=== PATIENT | male | born 1990 | race Caucasian/White ===

== ENCOUNTER 2025-09-07 13:48 | Emergency (ER) | payer BC, SELFPAY ==
--- OUTSIDE RECORDS SUMMARY | 2025-05-31 05:45 | XMS_ITS ---
Author Organization [facility] Primary Address [address] [place] [address] Care Team Providers Care Boot Lace Cutter Machine Name Role Phone Jcarlos George Primary Care Provider Pinky Harshad Davis Unavailable [phone] Minh Ordonez Unavailable Unavailable Reason For Referral Reason ENDOCRINOLOGY Diagnosis 1 Hyperthyroidism (E05 .90) Diagnosis 2 Single thyroid nodul e (E04.1) Referral Organization [facility] Primary Referring Provider First Name Harshad Referring Provider Last Name En Referring Provider Speciality Otolaryngo logy Referred Provider Specialty Endocrinolog y General Notes Chanell Monson 02:44:08 PM >Faxed referral to Dr. Landis ( ) Referral Priority Routine REASON FOR VISIT R thyroid nodule Medications Medication SIG (Take, Route, Frequency, Duration) Notes Start Date End Date Status Phenazopyridine HCl 100 MG Oral; Duration: 3 Day s ActiveTamsulosin HCl 0.4 MGOral; Duration: 14 DaysActiveHYDROcodone- Acetaminophen 5-325 MGTAKE 1 TABLET BY MOUTH EVERY 4 TO 6 HOURS NEEDED FOR PAIN Oral; Duration: 1 DaysActiveKetorolac Tromethamine 10 MGOral; Duration: 5 DaysActiveoxyBUTYnin Chloride 5 MGOral; Duration: 5 DaysActiveLoratadine 10 MG1 tablet Orally Once a dayActiveAcetaminophen Extra Strength 500 MGOral; Duration: 3 DaysActive Encounters Encounter Location Date Provider Diagnosis [facility] Primary [address] [place] [address] 05/31/2025 Harshad Gatica Assessments Encounter Date Diagnosis (ICD Code) Assessment Notes Treatment Notes Treatment Clinical Notes Section Notes 05/31/2025 Other Reviewed the patient's thyroid uptake scan. This demonstrated a hot nodule. We did go through with a ultrasound-guided fine-needle aspiration. We reviewed various aspects of managing a overactive nodule. I am placing a referral to endocrinology. I gave him some information on medical management. Iprovided a handout of symptoms that would correlate with either hyper or hypothyroidism. I discussed the role of surgery. He is going to consider his options. I set up a follow-up in 6 months. I planto call him about his biopsy results, next week. Plan Of Treatment Treatment Notes Assessment Notes Other Reviewed the patient 's thyroid uptake scan. This demonstrated a hot nodule. We did go through with a ultrasound-guided fine-needle aspiration. We reviewed various aspects of managing a overactive nodule. I am placing a referral to endocrinology. I gave him some information on medical management. I provided a handout of symptoms that would correlate with either hyper or hypothyroidism. I discussed the role of surgery. He is going to consider his options. I set up a follow-up in 6 months. I plan to call him about his biopsy results, next week. Referrals Referral Date Details 05/31/2025 05/31/2025, ENDOCRIN OLOGY Next Appt Details Provider Name:Harshad Soto Chely abdullahi, 12/04/2025 03:00:00 PM, [address] [facility], [place], [address], Progress Notes * Lee Ann SNY[birth year]OB:[birth year] (34 yo M)Acc No.[id number]:05/31/2025 Patient:?Per SNYDER :?Harshad ALEXEI GaticaOB:1990???Age:34 Y???Sex: MaleDate:05/31/2025Phone:Address:[address] [place], [place] [address]-[id number]: Jcarlos Hyman Do, DO Subjective: * Chief Complaints: * 1 . R thyroid nodule. * Medical History: * Medications: T aking Loratadine 10 MG Tablet 1 tablet Orally Once a day , Taking Acetaminophen Extra Strength 500 MG Tablet Oral , Taking HYDROcodone-Acetaminophen 5-325 MG Tablet TAKE 1 TABLET BY MOUTH EVERY 4 TO 6 HOURS NEEDED FOR PAIN Oral , Taking Ketorolac Tromethamine 10 MG Tablet Oral , Taking oxyBUTYnin Chloride 5 MG Tablet Oral , Taking Phenazopyridine HCl 100 MG Tablet Oral , Taking Tamsulosin HCl 0.4 MG Capsule Oral Objective: * Vitals: Assessment: Plan: * Treatment: Notes: Reviewed the patient's thyroid uptake scan. This demonstrated a hot nodule. We did go through with a ultrasound-guided fine-needle aspiration. We reviewed various aspects of managing a overactive nodule. I am placing a referral to endocrinology. I gave him some information on medical management. I provided a handout of symptoms that would correlate with either hyper or hypothyroidism. I discussed the role of surgery. He is going to consider his options. I set up a follow-up in 6 months. I plan to call him about his biopsy results, next week.? Referral To:Endocrinology ?Reason:ENDOCRINOLOGY * Billing Information: * Visit Code: * Procedure Codes: * Electronic signature of Harshad Gatica MD on 09/07/2025 at 02:42 PM ESTSign off status: Pending * Provider: Benoit Gatica MD Date: 0 05/31/2025 Generated for Printing/Faxing/eTransmitting on:?09/07/2025 02:42 PM EST Consultation Request Notes Referral Date Referring Provider Referred Provider Not es 05/31/2025 Harshad Gatica , ENDOCRINOLOGY
[2025-09-07 14:01] VITALS: BP 156/61; PULSE 86; TEMP 36.7; O2SAT 97; BMI 22.4
--- NOTE | 2025-09-07 14:34 | CT_ITS ---
The [address] [address] Patient Name: AMERICO SNYDER MRN: [id number] date: 1990 Sex: M Assigned Patient Location: ED.MAIN Current Patient Location: ED.MAIN Accession/Order Number: [id number] Exam Date: 09/07/2025 14:40 Report Date: 09/07/2025 15:11 At the request of: EMILY PEGUERO Procedure: CT abdomen pelvis w con CT ABDOMEN AND PELVIS WITH INTRAVENOUS CONTRAST: CLINICAL HISTORY: RLQ ttp COMPARISON: None TECHNIQUE: Spiral images were obtained through the abdomen and pelvis following the administration of intravenous contrast. This CT exam was performed using one or more following dose reduction techniques: Automated exposure control, adjustment of the mA and/or kV according to patient size, or use of iterative reconstruction technique. FINDINGS: Lung Bases: [No focal] opacity Organs:Subcentimeter hypodensities involving the right kidney noted too small for accurate characterization likely cysts. No hydronephrosis. Otherwise, Liver, spleen, adrenals, kidneys, and pancreas are unremarkable.[ GI: Mild retained stool throughout the colon. No bowel obstruction. Dilated appendix with wall thickening and surrounding frontal changes suggestive of acute uncomplicated appendicitis. Reactive Periappendiceal lymph nodes identified.[ Pelvis:[4 mm calculus suspected left ureteral vesicle junction. Minimal left distal hydroureter. Otherwise prostate unremarkable.] Peritoneum/Retroperitoneum:No free air or free fluid. Aorta normal caliber. Abd wall/Bones:Mild levocurvature lower lumbar spine. Minor dextrocurvature thoracolumbar junction.[ CT/CT abdomen pelvis w con IMPRESSION: Findings of acute uncomplicated appendicitis. Incidental left ureterovesical junction calculus causing minimal left-sided hydroureter is measures 4 mm in greatest dimension. Impression dictated by: Pieter Cruz M.D. 09/07/2025 3:11 PM Dictation Location: [place] [address] Electronically authenticated by: [id number] Y Date: 09/07/2025 15:11
--- NOTE | 2025-09-07 14:38 | ED_ITS ---
HPI HPI - General Adult General Chief complaint: Abdominal Pain Stated complaint: R SIDED LOWER ABDOMINAL PAIN Time Seen by Provider: 09/07/25 14:24 Source: patient Mode of arrival: walk-in Limitations: no limitations History of Present Illness HPI narrative: Patient is a 34-year-old male that presents to the emergency department with complaints of right lower quadrant abdominal pain that started last night. He states that he had a bowel movement 2 hours prior to arrival here. He denies any abdominal surgeries other than kidney stone removal with stent. He states that he has had a kidney stone but this area he has pain feels different. He states that he felt feverish last night, did not take his temperature. He also notes that he started to have dysuria and penile pain intermittently even when not urinating. He denies any testicular swelling, erythema, or trauma. He denies any nausea or vomiting. Related Data Home Medications ?Medication ?Instructions ?Recorded ?Confirmed loratadine 10 mg tablet (Allergy 10 mg PO DAILY 09/07/25 Relief (loratadine)) Allergies Allergy/AdvReac Type Severity Reaction Status Date / Time No Known Drug Allergies Allergy Verified 09/07/25 14:04 Opioid HPI Opioid Management Most Recent Opioid Data: Last Pain Scale 6 Today, 14:01 Review of Systems ROS Status of ROS 10 or more systems reviewed and unremark able except as noted in history and below PFSH PFSH Social History Little interest or pleasure in doing things: not at all Feeling down, depressed, or hopeless: not at all Exam Narrative Exam Narrative: General: No distress, age-appropriate Skin: Warm, dry, no pallor. No rash. Head: Normocephalic, atraumatic. Neck: Supple, non-tender. Eye: Pupils are equal, round and EOMI. No scleral icterus. Ears, Nose, Mouth, and Throat: No nasal mucosal hypertrophy. Oral mucosa is moist, no posterior oropharynx erythema, uvula is mid-line Cardiovascular: Regular Rate and Rhythm without murmur, gallop or rub. Respiratory: No accessory muscle use or respiratory distress. Lungs are clear to auscultation, no wheezing, rales or rhonchi Chest Wall: no tenderness Musculoskeletal: Full ROM of all extremities, no calf or popliteal tenderness GI: Abdomen is soft, non-distended, RLQ tenderness to palpation. No masses appreciated. No rebound, guarding, or rigidity noted. Neurological: A&O x4. No cranial nerve dysfunction observed. No truncal ataxia. Moves all extremities. Sensation intact. Psychiatric: Cooperative and interactive. Normal mood and affect. Constitutional Vital Signs, click to edit/add: Last Vital Signs Temp 98.0 F 09/07/25 14:01 Pulse 86 09/07/25 14:01 Resp 16 09/07/25 14:01 BP 156/61 H 09/07/25 14:01 Pulse Ox 97 09/07/25 14:01 O2 Del Method Room Air 09/07/25 14:01 Documenting provider has reviewed patient's vital signs: yes Course Vital Signs Vital signs: Vital Signs Temperature 98.0 F 09/07/25 14:01 Pulse Rate 86 09/07/25 14:01 Respiratory Rate 16 09/07/25 14:01 Blood Pressure 156/61 H 09/07/25 14:01 Pulse Oximetry 97 09/07/25 14:01 Oxygen Delivery Method Room Air 09/07/25 14:01 Temperature 98.0 F 09/07/25 14:01 Pulse Rate 86 09/07/25 14:01 Respiratory Rate 16 09/07/25 14:01 Blood Pressure 156/61 H 09/07/25 14:01 Pulse Oximetry 97 09/07/25 14:01 Oxygen Delivery Method Room Air 09/07/25 14:01 Medical Decision Making [facility] Narrative Medical decision making narrative: 34-year-old male presents with RLQ abdominal pain, subjective fever, dysuria, and penile discomfort. Exam notable for focal RLQ tenderness without peritonitis. Differential included appendicitis, ureterolithiasis, UTI, prostatitis, and testicular pathology. Labs show normal WBC (7.7), afebrile, and UA without evidence of infection. CT abdomen/pelvis demonstrates acute uncom plicated appendicitis as well as an incidental 4 mm left UVJ calculus with minimal hydroureter. Given CT findings and clinical presentation, appendicitis is the primary diagnosis; the UVJ stone is non-obstructing and non-infected. UA without signs of infection. Patient placed NPO. Pain controlled with analgesics. No indication for emergent urologic intervention at this time. I spoke with general surgeon, Dr. Corrales at [facility] and he will accept patient in transfer. If transfer is via EMS, he may have to wait or Dr Corrales recommended that if patient's family was reliable that they could transport via private vehicle as he was stable. Patient and his at bedside decided to transport via private vehicle. They are from [place] and live 5 hours away and preferred to have surgery as soon as possible. I called back and spoke with Dr. Corrales and he will accept patient as a direct admit. He does not wish for patient to get IV antibiotics here as it will delay transport and states he will give them to patient on arrival there. Patient is to present to ER registration. I updated patient with all this information and patient was transferred to [facility] via private vehicle in stable condition. Differential Diagnosis Differential Diagnosis: Appendicitis, UTI, ureterolithiasis, prostatitis, epididymitis Lab Data Lab results reviewed: Yes I reviewed the patient's lab results Labs: Lab Results 09/07/25 09/07/25 Range/Units 14:15 14:30 WBC 7.7 (4.0-11.0) 10^3/uL RBC 4.98 (4.70-6.10) 10^6/uL Hgb 13.8 L (14.0-18.0) g/dL Hct 40.8 L (42.0-54.0) % MCV 81.9 (80.0-94.0) fL MCH 27.7 (25.9-34.0) pg MCHC 33.8 (29.9-35.2) g/dL RDW 12.8 (11.0-15.0) % Plt Count 228 (150-450) 10^3/uL MPV 9.2 L (9.5-13.5) fL Neut % (Auto) 56.9 (43.0-75.0) % Lymph % (Auto) 29.9 (20.5-60.0) % [place] % (Auto) 10.1 (1.7-12.0) % Eos % (Auto) 2.4 (0.9-7.0) % Baso % (Auto) 0.4 (0.2-2.0) % Neut # (Auto) 4.4 (1.4-6.5) 10^3/uL Lymph # (Auto) 2.3 (1.2-3.8) 10^3/uL [place] # (Auto) 0.8 (0.3-0.8) 10^3/uL Eos # (Auto) 0.2 (0.0-0.7) 10^3/uL Baso # (Auto) 0.0 (0.0-0.1) 10^3/uL Abs Immat Gran (auto) 0.02 (0.00-0.03) 10^3/uL Imm/Tot Granulo (auto) 0.3 (0.0-0.5) % Sodium 136 (136-145) mmol/L Potassium 3.6 (3.5-5.1) mmol/L Chloride 101 (98-107) mmol/L Carbon Dioxide 29.3 (21.0-32.0) mmol/L Anion Gap 9.3 BUN 8.0 (7.0-18.0) mg/dL Creatinine 0.56 L (0.70-1.30) mg/dL Est GFR ( Amer) >60 (>=60 mL/min/1.73m^2) Est GFR (Non-Af Amer) >60 (>=60 mL/min/1.73m^2) BUN/Creatinine Ratio 14.3 Glucose 96 (74-106) mg/dL Calcium 9.0 (8.5-10.1) mg/dL Total Bilirubin 0.3 (0.2-1.0) mg/dL AST 20 (15-37) U/L ALT 49 (16-63) U/L Alkaline Phosphatase 80 (46-116) U/L Total Protein 7.1 (6.4-8.2) g/dL Albumin 3.5 (3.4-5.0) g/dL Globulin 3.6 g/dL Albumin/Globulin Ratio 1.0 Urine Color Lt. yellow (YELLOW) Urine Clarity Clear (CLEAR) Urine pH 6.0 (5.0-9.0) Ur Specific [place] 1.015 (1.005-1.025) Urine Protein Negative (NEG/TRACE) mg/dL Urine Glucose (UA) Negative (NEGATIVE) mg/dL Urine Ketones Negative (NEGATIVE) mg/dL Urine Occult Blood Trace-i (NEGATIVE) Urine Nitrite Negative (NEGATIVE) Urine Bilirubin Negative (NEGATIVE) Urine Urobilinogen 0.2 (0.2-1.0) EU/dL Ur Leukocyte Esterase Negative (NEGATIVE) Urine RBC 0-2 (0-2) #/HPF Urine WBC 0-2 A (NONE SEEN) #/HPF Ur Squamous Epith Cells Few A (NONE/RARE) #/LPF Urine Crystals None seen (None Seen) #/HPF Urine Bacteria Trace A (NONE SEEN) #/HPF Urine Casts None seen (NONE SEEN) #/LPF Urine Mucus Trace A (NONE SEEN) Ur Culture Indicated? No Imaging Data CT scan - abdomen: Attestation: I have reviewed the pertinent imaging results. Radiologist's impression: ITS Impressions Abdomen/Pelvis CT 09/07/25 14:34 IMPRESSION: Findings of acute uncomplicated appendicitis. Incidental left ureterovesical junction calculus causing minimal left-sided hydroureter is measures 4 mm in greatest dimension. Impression dictated by: Pieter Cruz M.D. 09/07/2025 3:11 PM Dictation Location: [facility] Device Electronically authenticated by: [id number] Y Date: 09/07/2025 15:11 Discharge Plan Discharge Chief Complaint: Abdominal Pain Clinical Impression: Acute appendicitis Patient Disposition: [facility] Time of Disposition Decision: 16:01 Discharge Location: [facility] Condition: Good Mode of Transportation: Private Vehicle
--- OUTSIDE RECORDS SUMMARY | 2025-09-07 14:42 | XMS_ITS | Clinical Summary ---
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 Social History Tobacco UseTypesPacks/DayYears UsedDateSmoking Tobacco: NeverSmokeless Tobacco: Never Tobacco Cessation:Counseling Given: Yes Alcohol UseStandard Drinks/WeekCommentsYes0 (1 standard drink = 0.6 oz pure alcohol)AUDIT-CAnswerDate RecordedQ1: How often do you have a drink containing alcohol?Monthly or less09/18/2019Average Number of DrinksNot on file09/18/2019 Frequency of Binge DrinkingNot on file09/18/2019Area Deprivation IndexAnswerDate RecordedNational Score (1-100), lower number is lower riskNot on file09/17/2020 State Score (1-10), lower number is lower riskNot on file09/17/2020Data from: https://www.neighborhoodatlas.medicine.[facility].edu/. Last address used for calculationNot on file09/17/2020Sex and Gender InformationValueDate RecordedSex Assigned at PigswPxzp74/22/2020 9:36 PM EDTLegal OsrAalj09/19/2013 4:22 PM EST Gender ArmlvdxxWpue34/22/2020 9:36 PM EDTSexual IqhloqbunfjNokvfnjq27/ 9:36 PM EDT Last Filed Vital Signs Vital SignReadingTime TakenCommentsBlood Amcuhrjs246/75010/23/2020 12:54 PM EST Csvdm974910/23/2020 12:54 PM KUMDksaomzhtck91.5 ??C (97.7 ??F)10/23/2020 12:54 PM ESTRespiratory Rate--Oxygen Jqfkzeknfr19%10/23/2020 12:54 PM ESTInhaled Oxygen Concentration--Ttymlp72.4 kg (186 lb)10/23/2020 12:54 PM VNGMiewed176.4 cm (6' 1 )10/23/2020 12:54 PM ESTBody Mass Index24.54010/23/2020 12:54 PM EST Plan of Treatment Health MaintenanceDue DateLast DoneCommentsAnxiety Omykrutha19/21/2010Depression Dfgjpehqt21/21/2010HIV Invuswtez39/21/2010Hepatitis C Zmchnbqrc97/21/2010 DTaP,Tdap,Td Vaccine (1 - Tdap)12/29/2010Hepatitis B Vaccine (1 of 3 - 19+ 3- dose series)12/29/2010HPV Vaccine (1 - 3-dose SCDM series)12/29/2018Covid-19 Vaccine (1 - 2024- season)2025Influenza Vaccine (#1)2025 08/17/2019, 07/12/2018, 06/03/2016, Additional history exists Insurance Care Teams Team MemberRelationshipSpecialtyStart DateEnd Date Lupis Valles PA-C [address] [place], [place] [id number] PCP - GeneralInternal Kqqjoynt07/9/19
--- OUTSIDE RECORDS SUMMARY | 2025-09-07 14:42 | XMS_ITS | Patient Health Record ---
Author Organization [facility] Primary Address [address] [place] [address] Care Team Providers Care Paint Brush Maker Name Role Phone Boogie Jcarlos RUBI Primary Care Provider Pinky jailaIbrahima Obrien Unavailable [phone] Minh Ordonez Unavailable Unavailable Allergies No Known Allergies Results Component Value Reference Range Notes NON-GYNECOLOGIC CYTOLOGY Reviewed date:06/04/2025 01:32:48 PM Interpretation: Performing Lab: Notes/Report: Right thyroid nodule Original Ordering Provider: IBRAHIMA GATICA [facility], Laboratory, [address] [place] [address] Final Diagnosis Right thyroid, fine-needle aspir ation and cell block: Benign, category 2, consistent with benign follicular nodule. CPT 83379, [address] Clinical InformationRight thyroid noduleGross DescriptionA. Thyroid, Right, : 1 fx/1 ad slides, cytolyt. Hazy, red fl 3 slides, CB Labeled Right thyroid nodule E04.1 DisclaimerThe technical components of this case were performed [facility] [address] [place], [place] [address]JgltOsg Note.NoteSee NoteNM THYROID SGL/MULT UPTAKE MEASUREMENT Reviewed date:05/29/2025 12:54:40 PM Interpretation: Performing Lab: Notes/Report: See Note [facility] NM THYROID SGL/MULT UPTAKE MEASUREMENT Reason For Referral Reason ENDOCRINOLOGY Diagnosis 1 Hyperthyroidism (E05 .90) Diagnosis 2 Single thyroid nodul e (E04.1) Referral Organization [facility] Primary Referring Provider First Name Ibrahima Referring Provider Last Name En Referring Provider Speciality Otolaryngo logy Referred Provider Specialty Endocrinolog y General Notes Chanell Monson 02:44:08 PM >Faxed referral to Dr. Landis ( ) Referral Priority Routine Medications Medication SIG (Take, Route, Frequency, Duration) [...] Extra Strength 500 MGOral; Duration: 3 DaysActive Social History Tobacco Use: Social History Observation Description Date Details (start date - stop date) Never Smoker NA - NA Tobacco Control (Standard) Question Answer Notes Tobacco use: Nonsmoker AUDIT-C (Standard) Question Answer Notes Did you have a drink containing alcohol in the p ast year? Yes How often did you have six or more drinks on one occasion in the past year?Never (0 point)How many drinks did you have on a typical day when you were drinking in the past year?1 or 2 drinks (0 point)How often did you have a drink containing alcohol in the past year?Monthly or less (1 point) Problems Problem Type SNOMED Code ICD Code Onset Dates Problem Status W/U Status Risk Notes Problem Hyperthyroidism (45432064) Hyperthyroidis m (E05.90) ActiveconfirmedProblemNon-toxic single thyroid nodule (482370260)Single thyroid nodule (E04.1)Activeconfirmed Vital Signs Height-cm 185.42 cm 05/07/2025 Weight-kg80.74 kg05/07/20256656Wtylsl57 in05/07/20256965Tokpws781 lbs05/07/2025BMI23.48 kg/m205/07/2025 Encounters Encounter Location Date Provider Diagnosis [facility] [address] [place] [address] 05/31/2025 Ibrahima Gatica [facility] [id number] [place], [place] [id number]/Matthew BowenHyperthyroidism E05.90 and Single thyroid nodule E04.1[facility] [address] [place] [address]/09/2025Matthew BowenHyperthyroidism E05.90 and Single thyroid nodule E04.1 Assessments Encounter Date Diagnosis (ICD Code) Assessment Notes Treatment Notes Treatment Clinical Notes Section Notes 05/07/2025 Hyperthyroidism (ICD-10 - E05.90 ) 05/07/2025Single thyroid nodule (ICD-10 - E04.1)05/22/2025Hyperthyroidism (ICD- 10 - E05.90)05/22/2025Single thyroid nodule (ICD-10 - E04.1)05/31/2025Other Reviewed the patient's thyroid uptake scan. This demonstrated a hot nodule. We did go through with a ultrasound-guided fine-needle aspiration. We reviewed various aspects of managing a overactive nodule. I am placing a referral to endocrinology. I gave him some information on medical management. I provided a handout of symptoms that would correlate with either hyper or hypothyroidism. I discussedthe role of surgery. He is going to consider his options. I set up a follow-up in 6 months. I plan to call him about his biopsy results, next week. 05/07/2025Other Patient has a newly noticed right thyroid nodule. He has a low TSH. Reviewing the ultrasound characteristics, the nodule does meet criteria for ultrasound-guided fine-needle aspiration. We are scheduling this after a thyroid uptake scan. Plan Of Treatment Pending Test Test Name Order Date NM THYROID UPTAKE MEASUREMENT 05/07/2025 Thyroid Uptake and Scan 05/22/2025 Next Appt Details Provider Name:Ibrahima abdullahi, 12/04/2025 03:00:00 PM, [address], [place], [address], Insurance Providers Payer Name Payer Address Payer Phone Subscriber Number Group Number Insured Name Patient Relationship to Insured Coverage Start Date Coverage End Date [facility] [address] [place] [address] [id number] Per Abad Self - patient is the insured Medical (General) History Medical History History ICD Code Asthma Surgical History Surgery Date(Month/Year) RIGHT URETEROSCOPY WITH LASE R LITHOTRIPSY, STENT PLACEMENT, URETHERAL DILATION
--- OUTSIDE RECORDS SUMMARY | 2025-09-07 14:42 | XMS_ITS | Clinical Summary ---
Author Organization [facility] Address [address] [place] [address] Care Team Providers Care Kineseologist Name Role Phone Phys, Self-Refer Or No Pcp/Referring Primary Car e Provider Unavailable Angus Byrne DO Unavailable Unavailable Allergies No known active allergies Medications MedicationSigDispense QuantityRefillsLast FilledStart DateEnd DateStatus loratadine 10 mg tablet Take 10 mg by mouth in the morning.Active fluticasone (FLONASE ALLERGY RELIEF) 50 mcg/actuation nasal spray in the morning.Active acetaminophen 500 mg tablet 05/04/2025tive oxyBUTYnin 5 mg tablet two times daily.Discontinued(Patient reported no longer prescribed) tamsulosin 0.4 mg 24 hr capsule Take 1 capsule (0.4 mg) by mouth two times daily. 60 capsule Discontinued(Patient reported no longer prescribed) phenazopyridine (PYRIDIUM) 100 mg tablet Take 1 tablet (100 mg) by mouth two times daily as needed for urination pain. 60 tablet Discontinued(Patient reported no longer prescribed) ketorolac (TORADOL) 10 mg tablet Discontinued(Patient reported no longer prescribed) Encounters DateTypeDepartmentCare SusbVybjnbjhgtc67/10/2025 4:20 PM ESTOffice Visit [facility] [address] [place] [id number] Okerstrom, Ama Stephanie, PA-C Kidney stones (Primary Dx)from Last 3 Months Family History Medical HistoryRelationNameCommentsKidney stonesFatherScott WeingartRelationName StatusCommentsFatherScott WeingartAlive Social History Tobacco UseTypesPacks/DayYears UsedDateSmoking Tobacco: NeverSmokeless Tobacco: Never Tobacco Cessation:Counseling Given: Not Answered Alcohol UseStandard Drinks/WeekCommentsYes1 (1 standard drink = 0.6 oz pure alcohol)[facility] UtilitiesAnswerDate RecordedIn the past [address] [employer], gas, oil, or water Ipp[employer] threatened to shut off services in your home?No 05/02/2025Hunger Vital SignAnswerDate RecordedWithin the past 12 months, you worried that your food would run out before you got the money to buymore.Never true05/02/2025Within the past 12 months, the food you bought just didn't last and you didn't have money to get more.Never true05/02/2025HC - Inadequate HousingAnswerDate RecordedWhat is your living situation today?I have a steady place to live05/02/2025Think about the place you live. Do you have problems with any of the following?None of the above05/02/2025NCSS - Interpersonal Safety AnswerDate RecordedDo you feel physically and emotionally safe where you currently live?Yes05/02/2025Within the past 12 months, have you been hit, slapped, kicked or otherwise physically hurt by someone?No05/02/2025Within the past 12 months, have you been humiliated or emotionally abused in other ways by your partner or ex-partner?No05/02/2025HC - TransportationAnswerDate RecordedIn the past 12 months, has lack of reliable transportation kept you from medical appointments, meetings, work or from getting things needed for daily living?No 05/02/2025HC - Financial StrainAnswerDate RecordedHow hard is it for you to pay for the very basics like food, housing, medical care, and heating? Would you say it is:Not hard at all05/02/2025Job TrainingAnswerDate RecordedDo you have a hard time finding work or another steady source of income?No05/02/2025Do you need help finding a local career center and/or job training?No05/02/2025hild or Elder CareAnswerDate RecordedIn the last 4 weeks, did getting day care center director, elder care, or care for another person make it difficult to work, study, or get to medical visits? 2No05/02/2025Virtual CareAnswerDate RecordedHow would you describe your comfort level with using technology (smart phones, mobile apps, patientportals) to access your health care?Rather /23/2025Do you have internet access in your home that would allow you to participate in a realtime video visit with your provider?Yes05/02/2025Do you have access to a device that would allow you to participate in virtual care with your provider, such as a laptop, computer, smart phone or tablet?Yes05/02/2025Social Isolation AnswerDate RecordedWithin the last 12 months, how often do you feel isolated from others?Jmmggk1505/02/2025Sex and Gender InformationValueDate RecordedSex Assigned at BirthNot on fileLegal QldQjix5104/30/2025 9:32 AM EDTGender Identity Not on fileSexual OrientationNot on file Last Filed Vital Signs Vital SignReadingTime TakenCommentsBlood Hwnzicrc413/5808 1:51 PM EDT Post stent gipalxbNkujp4357/21/2025 1:51 PM RLZArbaxkcgcho60.9 ??C (98.4 ??F) 05/31/2025 1:18 PM EDTRespiratory Mpuz337005/31/2025 1:18 PM EDTOxygen Saturation- -Inhaled Oxygen Concentration--Mchpft05.1 kg (170 lb)05/31/2025 1:18 PM EDT Kbjdwh201.4 cm (6' 1 )05/31/2025 1:18 PM EDTBody Mass Index22.4308 1:18 PM EDT Plan of Treatment Health MaintenanceDue DateLast DoneCommentsHepatitis C Tpekmnvmi62/21/1992 DTaP,Tdap,and Td Vaccines (1 - Tdap)12/29/2010Hepatitis B Vaccine ages 19 years and older (1 of 3 - 19+ 3-dose series)12/29/2010COVID-19 Vaccine ( season)512/, 08/12/2021, 01/24/2021, Additional history exists Influenza Vaccine (#1)511/01/2024, 08/14/2024, 10/07/2023, Additional history existsRespiratory Syncytial Virus (RSV) or ages 60 years and older (1 - 1-dose 75+ series)12/29/2066Pneumococcal CombinedAged OutNo longer eligible based on patient's age to complete this topicRespiratory Syncytial Virus (RSV) ages 0 thru 19 monthsAged OutNo longer eligible based on patient's age to complete this topic Procedures Procedure NamePriorityDate/TimeAssociated DiagnosisCommentsURINALYSIS, POINT OF CARE UITYLMKnhuwhz00/10/2025 4:32 PM EST from Last 3 Months Results * Urinalysis, Point of Care Result (08/20/2025 4:32 PM EST)ComponentValueRef RangeTest MethodAnalysis TimePerformed AtPathologist SignatureGlucose, Urine NegativeNegativeMICHIGAN MEDICINEBilirubin, UrineNegativeNegativeMICHIGAN MEDICINEKetones, UrineNegativeNegativeMICHIGAN MEDICINESpecific [place], Urine >=1.030<1.035[facility] MEDICINEBlood, UrineNegativeNegativeMICHIGAN MEDICINEpH, Urine6.05.0 - 8.0[facility] MEDICINEProtein, UrineNegative<30 mg/dLMICHIGAN MEDICINEUrobilinogen, Urine0.2 E.U./dL<2 E.U./dLMICHIGAN MEDICINENitrite, UrineNegativeNegativeMICHIGAN MEDICINELeukocyte EsteraseNegativeNegative [place] MEDICINEComment:Performing Lab: [facility], [address], [place] [address]Vdehmmwl (Source)Anatomical Location / LateralityCollection Method / VolumeCollection TimeReceived Time08/20/2025 4:32 PM EST08/20/2025 4:32 PM EST Narrative Authorizing ProviderResult TypeResult StatusNot On File PhysPOINT OF CARE TESTS Final ResultPerforming OrganizationAddressCity/State/ZIP CodePhone Number [facility] [address] [place] [address], [place] [phone] [facility] [address] [place] [address], [place] [phone] from Last 3 Months Insurance Care Teams Team MemberRelationshipSpecialtyStart DateEnd Date Phys, Self-Refer Or No Pcp/Referring PCP - General04/30/25 Angus Byrne DO [address] [facility] [place] [address] Urology05/22/25
--- OUTSIDE RECORDS SUMMARY | 2025-09-07 14:42 | XMS_ITS | Patient Health Record ---
Author Organization [facility] Address [address] [place] [address] Care Team Providers Care Shutdown Planner Name Role Phone Harshad Meraz Primary Care Provider Unavaila ble Allergies No Known Allergies Reason For Referral No Information Medications Medication SIG (Take, Route, Frequency, Duration) Notes Start Date End Date Status Claritin 10 MG 1 capsule Orally Once a day ActiveMucinex DM 30-600 MG1 tablet as needed Orally every 12 hrsNot-Taking Flonase Allergy Relief 50 MCG/ACT1 spray in each nostril Nasally Once a day Not-Taking Immunizations Vaccine Route Administration Date Status Comme nts qqFluvirin Prefilled Flu Vac cine, 4 yo and > (Non- Medicare) Unknown 08/14/2024 Administered Flu Vaccine (Given in Past) HaqglkvlyjwTjddjdo10/28/2902Hxfxmizrpqqys4154 Fluzone Quad PFS (0.5mL Admin) 6 months & locmiMvxqmfa24/11/2023 Contraindications Social History Tobacco Use: Social History Observation Description Date Details (start date - stop date) Never Smoker NA - NA Tobacco Control (Standard) Question Answer Notes Tobacco use: Nonsmoker Problems Problem Type SNOMED Code ICD Code Onset Dates Problem Status W/U Status Risk Notes Problem Seasonal allergy (778704640) Seasonal all ergies (J30.2) ActiveconfirmedProblemChronic sinusitis (35482144)Frequent sinus infections (J32.9)Activeconfirmed Plan Of Treatment No Information Insurance Providers Payer Name Payer Address Payer Phone Subscriber Number Group Number Insured Name Patient Relationship to Insured Coverage Start Date Coverage End Date [employer] [place] [address] [place] [address] [id number] Weingart, Per Self - patient is the insured Medical (General) History Medical History History ICD Code Seasonal allergies J30.2 Frequent sinus infections J32.9
--- OUTSIDE RECORDS SUMMARY | 2025-09-07 14:42 | XMS_ITS | Clinical Summary ---
Author Organization [facility] Address [address] [place] [address] Care Team Providers Care Director Sterile Processing Name Role Phone Mariya Harshad Julianna RUBI Primary Care Provider [phone] Allergies No known active allergies Medications MedicationSigDispense QuantityRefillsLast FilledStart DateEnd DateStatus loratadine (Claritin) 10 MG/10ML syrup 1 (one) time each day at the same time.Active Active Problems ProblemNoted DateDiagnosed DateAllergic weedaadk07/31/2023 Immunizations ImmunizationAdministration DatesNext DueInfluenza, injectable, MDCK, preservative free, urqkdlhtpoud93/19/2022Influenza, injectable, quadrivalent, preservative free07/30/2021,07/09/2020,08/17/2019,07/12/2018,06/03/2016 Influenza, seasonal, voajxerpnl60/20/2014,07/31/2013Influenza, seasonal, injectable, preservative free07/05/2015Novel xscarfjqw-Q9M5-93, preservative-free08/17/20098873JJZR-HFW-7 (COVID-19) vaccine, mRNA, spike protein, LNP, bivalent, preservative free, 30 mcg/0.3 mLdose, mikayla-sucrose formulation 09/28/2022 Family History Medical HistoryRelationNameCommentsNo Known ProblemsFatherNo Known Problems MotherNo Known NbkyxmbqTivgzj2MkdhopybLwztQovtjjOgrpguktLbsejqNwdheQazsueDjnki Xdnjfx1Fuepc Social History Tobacco UseTypesPacks/DayYears UsedDateSmoking Tobacco: NeverSmokeless Tobacco: Never Tobacco Cessation:Counseling Given: Not Answered Alcohol UseStandard Drinks/WeekCommentsYes1 (1 standard drink = 0.6 oz pure alcohol)3-4 drinks, 2-3 times a week.Humiliation, Afraid, Rape, and Kick questionnaireAnswerDate RecordedWithin the last year, have you been afraid of your partner or ex-partner?No06/10/2023Within the last year, have you been humiliated or emotionally abused in other ways by your partner or ex-partner?No 06/10/2023Within the last year, have you been kicked, hit, slapped, or otherwise physically hurt by your partner or ex-partner?No06/10/2023Within the last year, have you been raped or forced to have any kind of sexual activity by your part ner or ex-partner?No06/10/2023Social Connection and Isolation PanelAnswerDate RecordedIn a typical week, how many times do you talk on the phone with family, friends, or neighbors?Once a week06/10/2023How often do you get together with friends or relatives?Once a week06/10/2023How often do you attend alevism or jewish services?More than 4 times per year06/10/2023o you belong to any clubs or organizations such as alevism groups, unions, fraternal or athletic teja ups, or school groups?Yes06/10/2023How often do you attend meetings of the clubs or organizations you belong to?1 to 4 times per year06/10/2023re you , , , , never , or living with a partner? 06/10/2023UDIT-CAnswerDate RecordedQ1: How often do you have a drink containing alcohol?2-4 times a month06/10/2023Q2: How many drinks containing alcohol do you have on a typical day when you are drinking?1 or Q3: How often do you have six or more drinks on one occasion?Never06/10/2023Overall Financial Resource Strain (CARDIA)AnswerDate RecordedHow hard is it for you to pay for the very basics like food, housing, medical care, and heating?Not very hard 06/10/2023HQ-2AnswerDate RecordedPatient Health Questionnaire-2 Score0 06/11/2023Fin[facility] [place] of Occupational Health - Occupational Stress QuestionnaireAnswerDate RecordedDo you feel stress - tense, restless, nervous, or anxious, or unable to sleep at night because yourmind is troubled all the time - these days?To some bdftxi7606/10/2023Exercise Vital SignAnswerDate Recorded On average, how many days per week do you engage in moderate to strenuous exercise (like a brisk walk)?3 days06/10/2023On average, how many minutes do you engage in exercise at this level?30 min06/10/2023Hunger Vital SignAnswerDate RecordedWithin the past 12 months, you worried that your food would run out before you got the money to buymore.Never true06/10/2023Within the past 12 months, the food you bought just didn't last and you didn't have money to get more.Never true06/10/2023RAPARE - TransportationAnswerDate RecordedIn the past 12 months, has lack of transportation kept you from medical appointments or from getting medications?No06/10/2023In the past 12 months, has lack of transportation kept you from meetings, work, or from getting things needed for daily living?No06/10/2023Housing Stability Vital SignAnswerDate RecordedIn the last 12 months, was there a time when you were not able to pay the mortgage or rent on time?No06/10/2023In the last 12 months, how many places have you lived?1 06/10/2023In the last 12 months, was there a time when you did not have a steady place to sleep or slept in [place] (including now)?No06/10/2023Sex and Gender InformationValueDate RecordedSex Assigned at LarvdSeqo48/31/2023 7:21 PM EDT Legal RfiDymz7512/23/2022 8:26 PM EDTGender HifjjhpzSult01/31/2023 7:21 PM EDT Sexual OrientationNot on file Last Filed Vital Signs Vital SignReadingTime TakenCommentsBlood Ukalzqnz979/7809 9:15 AM EDT Gwvbf29502/01/2023 9:15 AM MEBIesbywsakgd51.6 ??C (97.9 ??F)06/11/2023 9:15 AM EDTRespiratory Rate--Oxygen Ushmbuyfae99%06/11/2023 9:15 AM EDTInhaled Oxygen Concentration--Twyfoi15.7 kg (189 lb)06/11/2023 9:15 AM TKDJhajue657 cm (6' 2 ) 06/11/2023 9:15 AM EDTBody Mass Index24.27006/11/2023 9:15 AM EDT Plan of Treatment Health MaintenanceDue DateLast DoneCommentsPneumococcal Vaccine: Pediatrics (0 to 5 Years) and At-Risk Patients (6 to 64 Years) (1 of 2 - PCV)12/29/2010COVID- 19 Vaccine ( season)/11/2020, 01/24/2021, 12/27/2020 Influenza Vaccine (#1)/01/2024, 07/14/2023, 07/29/2022, Additional [place] [address] Care Teams Team MemberRelationshipSpecialtyStart DateEnd Date Harshad Meraz DO [address] [place] [address] PCP - GeneralFamily Medicine02/16/23
[2025-09-07 14:43] LABS: Hematocrit 40.8 % (42.0-54.0); Hemoglobin 13.8 g/dL (14.0-18.0); Immature Granulocytes Abs Auto 0.02 10^3/uL (0.00-0.03); Immature Granulocytes Pct Auto 0.3 % (0.0-0.5); Lymphocytes Absolute Auto 2.3 10^3/uL (1.2-3.8); Mean Corpuscular HGB Conc 33.8 g/dL (29.9-35.2); Mean Corpuscular Hemoglobin 27.7 pg (25.9-34.0); Mean Corpuscular Volume 81.9 fL (80.0-94.0); Platelet Count 228 10^3/uL (150-450); Red Blood Count 4.98 10^6/uL (4.70-6.10); White Blood Count 7.7 10^3/uL (4.0-11.0)
[2025-09-07 14:45] LABS: Glucose Urine UA NEGATIVE (NEGATIVE)
[2025-09-07 14:55] LABS: Cast Seen? NONE SEEN #/LPF (NONE SEEN); Crystals Seen? None Seen #/HPF (None Seen); Urine Culture Indicated NO
[2025-09-07 14:57] LABS: Alanine Aminotransferase 49 U/L (16-63); Albumin Globulin Ratio 1.0; Albumin Level 3.5 g/dL (3.4-5.0); Alkaline Phosphatase 80 U/L (46-116); Anion Gap 9.3; Aspartate Amino Transferase 20 U/L (15-37); Blood Urea Nitrogen 8.0 mg/dL (7.0-18.0); Calcium 9.0 mg/dL (8.5-10.1); Carbon Dioxide 29.3 mmol/L (21.0-32.0); Chloride 101 mmol/L (98-107); Estimated GFR (African America >60 (>=60 mL/min/1.73m^2); Estimated GFR (Non-African Ame >60 (>=60 mL/min/1.73m^2); Globulin 3.6 g/dL; Glucose 96 mg/dL (74-106); Potassium 3.6 mmol/L (3.5-5.1); Sodium 136 mmol/L (136-145); Total Protein 7.1 g/dL (6.4-8.2)
[2025-09-07] MEDS: KETOROLAC TROMETHAMINE 30 MG/ML VIAL IVP (15:00)
[2025-09-07 16:11] VITALS: BP 134/79; PULSE 78; O2SAT 99
--- NOTE | 2025-09-07 16:11 | PC.NURSE ---
Patient is aware of transfer plan IV wrapped with coban Pt has been told by this nurse as well as PA that he is to go straight to [facility] with no stops no eating and drinking pt verbalizes understanding of this
== END 2025-09-07 16:20 | disposition short-term general hospital (02) ==
PROVIDERS: Physician Assistant; Emergency Provider Emergency Medicine
DX: K35.80 Unspecified acute appendicitis (principal); Z87.442 Personal history of urinary calculi; N20.1 Calculus of ureter
CPT/HCPCS: 36415; 74177; 80053; 81001; 85025; 96374; 99285; J1885; Q9967